=== PATIENT | female | born 1940 | race Hispanic/Latino ===

== ENCOUNTER 2024-04-28 11:05 | Emergency (ER) | payer MEDICARE, OTHER, SELFPAY ==
[2024-04-28 11:14] VITALS: BP 162/77
--- NOTE | 2024-04-28 13:19 | ED.GENMED ---
History of Present Illness
General
Chief Complaint: Eye Problems
Source: patient
Exam Limitations: none
Time Seen by Provider: 04/28/24 13:02
History of Present Illness
History of Present Illness:
84-year-old female presents with reddened appearance to the white part of her left eye starting this morning. She complains of a foreign body sensation. No known injury. Prior history of cataract surgery. She denies vision change. No
anticoagulants. She denies a headache. No other complaints at this
Past History
Past History
ED Past Medical History: HTN
ED Past Surgical History: None
Social History
Tobacco: Non-smoker
Living: with family
Phy Exam
Physical Exam
Physical Exam:
General: Well-appearing female no acute respiratory distress
HEENT: Normocephalic atraumatic left eye exam with fluorescein stain and Gallegos lamp. There is evidence of subconjunctival hemorrhage on the lateral aspect of the sclera. Lids were everted with stain and there is no foreign body there is no
evidence of stain uptake to suggest corneal abrasion. Pupils equal round reactive to light there is no hyphema. The pressure in the left eye was checked which is 14 mmHg. There is no proptosis no pain with palpation. No signs of entrapment.
Skin: Surrounding skin is without erythema
Course
Vital Signs
Initial and Last Documented VS:
Initial Vital Signs
Temp Pulse Resp BP Pulse Ox
98.7 F 72 18 162/77 99
04/28/24 11:14 04/28/24 11:14 04/28/24 11:14 04/28/24 11:14 04/28/24 11:14
Last Documented Vital Signs
Temp Pulse Resp BP Pulse Ox
98.7 F 72 18 162/77 99
04/28/24 11:14 04/28/24 11:14 04/28/24 11:14 04/28/24 11:14 04/28/24 11:14
MDM/Problems Addressed
Differential Diagnosis Includes:
Exam most consistent with subconjunctival hemorrhage. No sign of trauma or foreign body. No sign of glaucoma based on her normal pressure. Reassured patient and daughter. Recommended artificial tears and supportive care otherwise. Stable for
discharge
*Critical Care Note
Total Time (30-74mins, 75-104mins- exclusive of procedures): Not Applicable
ED Attending Note
-
Portions of this chart may have been created with voice recognition software.� Occasional wrong word or��sound alike� substitutions may have occurred due to the inherent limitations of voice recognition software.
Discharge Plan
Departure
Patient Disposition: Home (Routine Discharge)
Date of Disposition: 04/28/24
Time of Disposition: 13:21
Patient with high blood pressure during this ER visit?: No
Discharge Problem:
Subconjunctival hemorrhage
Instructions: Subconjunctival Hemorrhage
Prescriptions:
No Action
metoprolol succinate 50 MG tablet extended release 24 hr
1 tab PO DAILY
memantine 5 mg Tablet
5 mg PO BID
Referrals:
UNKNOWN - PT DOES,NOT KNOW [Family Provider] -
Activity Restrictions/Additional Instructions:
You may use cool compresses to the eye. Use artificial tears as needed. Return if worse otherwise follow-up with your eye doctor
Interventions
Interventions:
*Risk Screen - Suicide Last Done: 04/28/24 11:50
*General Assessment Last Done: 04/28/24 11:51
*Neglect/Abuse Screening Last Done: 04/28/24 11:50
ED- Fall Risk Assessment Last Done: 04/28/24 11:51
*ED COVID-19 Vaccine History Last Done: 04/28/24 11:18
Discharge Date and Time
Print Language: SINHALA
== END 2024-04-28 13:32 | disposition home or self-care (01) ==
LOC: EMR 11:05
PROVIDERS: EMERGENCY PHYSICIAN Emergency Medicine
DX: H11.32 Conjunctival hemorrhage, left eye (principal); I10 Essential (primary) hypertension
CPT/HCPCS: 99282

== ENCOUNTER → 2024-11-10 14:27 | Outpatient (REF) | payer MEDICARE, OTHER, SELFPAY | LOC: RAD 14:27 | PROVIDERS: ATTENDING PHYSICIAN Physician Assistant | DX: G89.29 Other chronic pain (principal); M25.561 Pain in right knee; M25.562 Pain in left knee | CPT/HCPCS: 73564 ==

== ENCOUNTER → 2024-11-11 11:58 | Outpatient (REF) | payer MEDICARE, OTHER, SELFPAY ==
[2024-11-11 12:34] LABS: % Basophils 0.7 % (0-2); % Eosinophils 1.5 % (0-6); % Immature Granulocytes 0.4 % (0-0.5); % Lymphocytes 19.3 % (20.5-51.1); % Monocytes 6.8 % (1.7-9.3); % Neutrophils 71.3 % (42.2-75.2); Absolute Eosinophils 0.1 10^3/uL (0-0.7); Absolute Lymphocytes 1.1 10^3/uL (1.2-3.4); Absolute Monocytes 0.4 10^3/uL (0.1-0.6); Absolute Neutrophils 3.9 10^3/uL (1.4-6.5); Hematocrit 43.9 % (37.0-47.0); Hemoglobin 14.6 g/dL (12.0-16.0); Mean Corp Hgb Conc. 33.3 g/dL (33.0-37.0); Mean Corpuscular Hgb 30.4 pg (27.0-31.0); Mean Corpuscular Volume 91.3 fL (81.0-99.0); Nucleated Red Blood Cells % 0 %; Platelet Count 273 10^3/uL (130-400); Red Blood Cell Count 4.81 10^6/uL (4.20-5.40); White Blood Cell Count 5.5 10^3/uL (4.8-10.8)
[2024-11-11 13:56] LABS: ALT (SGPT) 12 U/L (0-35); Albumin 4.2 g/dl (3.5-5.0); Alkaline Phosphatase 83 U/L (38-126); Blood Urea Nitrogen 24 mg/dl (7-17); Calcium 9.8 mg/dl (8.4-10.2); Carbon Dioxide 28 mmol/L (22-30); Chloride 106 mmol/L (98-107); Glucose 93 mg/dl (70-99); HDL Cholesterol 87 mg/dl; LDL Cholesterol, Calculated 130 mg/dl; Sodium 139 mmol/L (135-145); Total Bilirubin 0.9 mg/dl (0.2-1.3); Total Cholesterol 233 mg/dl (50-199); Triglyceride 82 mg/dl (10-149); Very Low Density Lipoprotein 16 mg/dl (0-30); eGFR > 60.00
[2024-11-11 14:31] LABS: TSH 5.94 uIU/ml (0.47-4.68)
[2024-11-11 16:56] LABS: AST (SGOT) 23 U/L (14-36)
== END ==
LOC: REG 11:58
PROVIDERS: ATTENDING PHYSICIAN Internal Medicine; FAMILY PHYSICIAN Physician Assistant
DX: Z00.00 Encounter for general adult medical examination without abnormal findings (principal); I10 Essential (primary) hypertension; R41.3 Other amnesia; E03.9 Hypothyroidism, unspecified
CPT/HCPCS: 36415; 80053; 80061; 84443; 85025